=== PATIENT | male | born 1980 | race Hispanic/Latino ===

== ENCOUNTER 2017-10-12 09:34 | Emergency (ER) | payer MEDICAID ==
[2017-10-12] MEDS ORDERED: METHYLPREDNISOLONE SOD SUCC 125MG/2ML VIAL ONE (09:52)
[2017-10-12] MEDS ORDERED: IPRATROPIUM/ALBUTEROL SULFATE 3 ML SOLUTION IH ONE ×3 (09:55→11:09)
== END 2017-10-12 12:14 | disposition home or self-care (01) ==
LOC: EDH 09:34
DX: J45.901 Unspecified asthma with (acute) exacerbation (principal)
CPT/HCPCS: 71046; 94640 ×3; 96374; 99285; J2930